=== PATIENT | male | born 1940 | race Caucasian/White ===

== ENCOUNTER 2016-06-30 10:07 | Emergency (ER) | payer MEDICARE, OTHER ==
[2016-06-30 11:11] LABS: BASOPHIL 0 % (0-2); EOSINOPHIL 0 % (0-7); HCT 39.9 % (42.0-52.0); HGB 13.7 g/dl (13.2-18.0); LYMPHOCYTE 2.8 % (15-48); MCHC 34.3 g/dL (32.0-36.0); MONOCYTE 1.3 % (0-12); MPV 11.3 fL (6.0-9.5); NEUTROPHIL 95.9 % (41-80); RBC 4.03 M/uL (4.70-6.00); RDW 11.9 % (11.5-14.0); WBC 6.7 K/uL (4.0-10.5)
[2016-06-30 11:16] LABS: PLT 46 K/uL (150-400)
[2016-06-30 11:30] LABS: ALBUMIN 3.8 g/dL (3.4-4.8); BILIRUBIN - TOTAL 1.1 mg/dL (0.1-1.0); CREATININE 1.4 mg/dL (0.7-1.2); GLOBULIN (CALCULATION) 2.7 g/dL (2.2-4.2); POTASSIUM 3.9 mmol/L (3.5-5.1); TOTAL PROTEIN 6.5 g/dL (6.4-8.3)
== END 2016-06-30 14:22 | disposition home or self-care (01) ==
LOC: FER 10:07
PROVIDERS: Emergency Medicine
DX: N17.9 Acute kidney failure, unspecified (principal); E86.0 Dehydration; B37.0 Candidal stomatitis; R05 Cough; I10 Essential (primary) hypertension; K21.9 Gastro-esophageal reflux disease without esophagitis; N40.0 Benign prostatic hyperplasia without lower urinary tract symptoms
CPT/HCPCS: 36415; 71010; 80053; 85025; J2405

== ENCOUNTER → 2020-10-13 | Day surgery (SDC) | payer OTHER ==
[~2020-10-13] VITALS: Ht 180.3 cm; Wt 66.7 kg
[~2020-10-13] MED LIST: FOLIC ACID PO; OMEPRAZOLE40 MG PO; PROBIOTIC1 EAC1 PO; PROSCAR5 MG PO; TAMSULOSIN HCL0.4 MG PO; VITAMIN D2000 UNIT PO
[2020-10-13 09:03] LABS: HCT 39.6 % (42.0-52.0); HGB 13.5 g/dl (13.2-18.0); MCH 33.9 pg (25.0-31.0); MCHC 34.1 g/dL (32.0-36.0); MCV 99.5 fL (78.0-100.0); MPV 10.1 fL (6.0-9.5); RBC 3.98 M/uL (4.70-6.00); RDW 11.8 % (11.5-14.0); WBC 4.7 K/uL (4.0-10.5)
[2020-10-13 09:29] LABS: ALBUMIN 3.4 g/dL (3.4-5.0); BILIRUBIN - TOTAL 0.7 mg/dL (0.2-1.0); BUN/CREAT RATIO (CALC) 9.5 RATIO; CREATININE 0.84 mg/dL (0.67-1.17); POTASSIUM 3.7 mmol/L (3.5-5.1); TOTAL PROTEIN 6.4 g/dL (6.4-8.2)
== END | disposition home or self-care (01) ==
LOC: FAS 09-29 09:45
PROVIDERS: Surgery
DX: Z12.11 Encounter for screening for malignant neoplasm of colon (principal); K57.30 Diverticulosis of large intestine without perforation or abscess without bleeding; K58.9 Irritable bowel syndrome, unspecified; I10 Essential (primary) hypertension; N42.9 Disorder of prostate, unspecified; K21.9 Gastro-esophageal reflux disease without esophagitis; Z79.899 Other long term (current) drug therapy
CPT/HCPCS: 36415; 80053; J1610; J2704; J7120